=== PATIENT | female | born 1995 | race Caucasian/White ===

== ENCOUNTER 2022-04-21 06:14 | Inpatient (IN) ==
[2022-04-21] MEDS ORDERED: D5 1/2 NS 1,000 ML 1,000 ML IV SCH (06:19)
[2022-04-21] MEDS ORDERED: ANCEF VIAL 1 GRAM IVP ONE (06:19)
[2022-04-21] MEDS ORDERED: LR 1,000 ML IV 1,000 ML IV ONE ×2 (06:39→07:22)
[2022-04-21] MEDS ORDERED: NS 100 ML IV 100 ML ONE (06:39)
[2022-04-21] MEDS ORDERED: ANCEF VIAL 1 GRAM ONE (06:39)
[2022-04-21] MEDS ORDERED: REGLAN INJ 10 MG VIAL ONE (06:43)
[2022-04-21] MEDS ORDERED: PEPCID 20 MG VIAL ONE (06:43)
[2022-04-21] MEDS ORDERED: ZOFRAN INJ 4 MG VIAL ONE (06:43)
[2022-04-21] MEDS ORDERED: DIPRIVAN VIAL 20 ML ONE (06:57)
[2022-04-21] MEDS ORDERED: EPHEDRINE SULFATE INJ ONE (06:57)
[2022-04-21] MEDS ORDERED: XYLOCAINE 2 % (PLAIN) ONE (07:00)
[2022-04-21] MEDS ORDERED: DILAUDID INJ ONE (07:00)
[2022-04-21] MEDS ORDERED: MARCAINE SPINAL ONE (07:00)
[2022-04-21] MEDS ORDERED: D5 1/2 NS 1,000 mL + PITOCIN 20 UNITS/L IV 20 UNITS/1,000 ML BAG IV ONE (07:22)
[2022-04-21] MEDS ORDERED: NEO-SYNEPHRINE INJ ONE (07:27)
[2022-04-21] MEDS ORDERED: PITOCIN ONE (07:48)
[2022-04-21] MEDS ORDERED: BENADRYL INJ 50 MG VIAL IVP PRN ×2 (09:03→09:36)
[2022-04-21] MEDS ORDERED: REGLAN INJ 10 MG VIAL IVP PRN ×2 (09:03→09:36)
[2022-04-21] MEDS ORDERED: BARHEMSYS INJ IVP PRN (09:03)
[2022-04-21] MEDS ORDERED: DILAUDID INJ IVP PRN (09:03)
[2022-04-21] MEDS ORDERED: PHENERGAN INJ 25 MG IM PRN (09:03)
[2022-04-21] MEDS ORDERED: ZOFRAN INJ 4 MG VIAL IVP PRN (09:03)
[2022-04-21] MEDS ORDERED: MYLICON TAB 80 MG CHEW PO PRN (09:36)
[2022-04-21] MEDS ORDERED: NARCAN INJ IVP PRN (09:36)
[2022-04-21] MEDS ORDERED: TORADOL 30 MG VIAL IVP PRN (09:36)
[2022-04-21] MEDS ORDERED: ADACEL or BOOSTRIX TDaP VACCINE IM ONE ×2 (09:36→19:13)
[2022-04-21] MEDS ORDERED: PERCOCET TAB 5/325 MG PO PRN (09:36)
[2022-04-21] MEDS ORDERED: D5 1/2 NS 1,000 ML 1,000 ML with PITOCIN 20 UNITS IV SCH ×2 (10:00)
[2022-04-21] MEDS: ZOFRAN INJ 4 MG VIAL IVP PRN ×2 (10:33→21:34)
[2022-04-21] MEDS: MOTRIN TAB 800 MG PO PRN (17:28)
[2022-04-21] MEDS: PERCOCET TAB 5/325 MG PO PRN (19:16)
[2022-04-21] MEDS: COLACE CAP 100 MG PO SCH (20:06)
[2022-04-21] MEDS: BACTROBAN TOPICAL OINT TOP SCH (21:34)
[2022-04-22] MEDS: MOTRIN TAB 800 MG PO PRN (04:15)
[2022-04-22 05:24] LABS: HEMATOCRIT 35.1 % (36.0-47.0); HEMOGLOBIN 12.5 g/dL (12.0-16.0)
[2022-04-22] MEDS: BACTROBAN TOPICAL OINT TOP SCH (05:25)
[2022-04-22] MEDS ORDERED: SYNTHROID 100 mcg TAB PO SCH (06:30)
[2022-04-22 08:46] VITALS: BP 141/67
[2022-04-22] MEDS: COLACE CAP 100 MG PO SCH (08:50)
[2022-04-22] MEDS ORDERED: PRENATAL PLUS PO SCH (09:00)
[2022-04-22] MEDS ORDERED: CELEXA PO SCH (09:00)
[2022-04-22] MEDS: PERCOCET TAB 5/325 MG PO PRN (10:10)
== END 2022-04-22 10:35 | disposition home or self-care (01) | DRG 788 ==
LOC: LD 06:14 → MED/SURG 10:02
PROVIDERS: ADMIT Specialist; ATTEND Specialist
DX: F41.9 Anxiety disorder, unspecified; Z3A.39 39 weeks gestation of pregnancy; O99.343 Other mental disorders complicating pregnancy, third trimester; O36.63X0 Maternal care for excessive fetal growth, third trimester, not applicable or unspecified; E03.9 Hypothyroidism, unspecified; O99.283 Endocrine, nutritional and metabolic diseases complicating pregnancy, third trimester; Z20.822 Contact with and (suspected) exposure to COVID-19; Z37.0 Single live birth